=== PATIENT | male | born 1945 | race Caucasian/White ===

== ENCOUNTER 2017-07-04 07:54 | Day surgery (SDC) | payer MEDICARE, BC ==
[~2017-07-04 07:54] MED LIST: RINGER'S SOLUTION,LACTATED 1,000 ML IV PRN; ceFAZolin SODIUM 2 GM in DEXTROSE 5 % IN WATER 50 ML IV PRN
[2017-07-04] MEDS ORDERED: LIDOCAINE HCL 50 ML VIAL IJ ONE ×2 (10:00)
[2017-07-04] MEDS ORDERED: BUPIVACAINE HCL/EPINEPHRINE 50 ML VIAL IJ ONE ×2 (10:00)
[2017-07-04] MEDS ORDERED: DIAZEPAM 5 MG/ML SYRG IV PRN (12:09)
--- NOTE | 2017-07-04 12:22 | OR ---
Operative Report - Dictated Report Narrative: Date: 07/04/2017 Preop dx: right inguinal hernia Postop dx: same, indirect Procedure: Right inguinal hernia repair with large perfix plug and patch Staff surgeon: Omer Golden MD Asst surgeon: Pelon Lynne, M3 EBL: minimal Anesthesia: local/MAC Complications: none apparent Description: Pt placed in the supine position and the groin and genitalia were prepped and draped in a sterile fashion. Field block was performed. Incision was made at the pubic tubercle and extended laterally for four finger breadths. Dissection through the subq fat encountered the spermatic cord which was isolated with a jerome drain. The external oblique was patulous and virtually non-existent. The posterior inguinal canal was intact. The external spermatic fascia was split on the cord and the hernia sac was dissected free from cord structures all the way back into the pelvis. The sac was then imbricated back into the pelvis and addition properitoneal pocket was developed with sponge packing. A large perfix plug was then deployed into the pocket using the kevin modification. The keyholed mesh was then fashioned to conform to the posterior inguinal canal with 2 cm overlap over the pubic tubercle. This was secured to the tubercle with prolene. It was also secured to the conjoined tendon and the two tails were sutured together lateral to the internal ring. No external oblique was available for coverage over the cord. The incision was closed with maryann and a sterile dressing applied. The patient tolerated the procedure well without any apparent complications and was discharged from the operating room in stable condition.
[2017-07-04] MEDS ORDERED: DIAZEPAM 5 MG/ML SYRG ONE (12:26)
[2017-07-04 13:41] VITALS: BP 141/80
== END 2017-07-04 07:55 | disposition home or self-care (01) ==
LOC: AMB 07:54
PROVIDERS: ATTEND Specialist
PROC: 0YU50JZ Supplement Right Inguinal Region with Synthetic Substitute, Open Approach (ICD-10-PCS; principal; 2017-07-04 09:00)
DX: K40.90 Unilateral inguinal hernia, without obstruction or gangrene, not specified as recurrent (principal); I87.303 Chronic venous hypertension (idiopathic) without complications of bilateral lower extremity; I10 Essential (primary) hypertension; K21.9 Gastro-esophageal reflux disease without esophagitis; Z87.891 Personal history of nicotine dependence; Z68.33 Body mass index [BMI] 33.0-33.9, adult